=== PATIENT | female | born 1960 | race Hispanic/Latino ===

== ENCOUNTER 2016-11-17 18:32 | Emergency (ER) | payer OTHER ==
[~2016-11-17] VITALS: Ht 152.4 cm; Wt 54.0 kg
[2016-11-17 20:09] LABS: ABSOLUTE BASOPHIL COUNT 0 /CUMM (0.0-0.2); ABSOLUTE EOSINOPHIL COUNT 0.2 /CUMM (0.0-0.7); ABSOLUTE LYMPH COUNT 2.8 /CUMM (1.2-3.4); ABSOLUTE MONOCYTE COUNT 0.6 /CUMM (0.10-0.60); BASOPHIL % 0.4 % (0.0-2.0); EOSINOPHIL % 3.2 % (0-5); GRANULOCYTE % 45.6 % (42.2-75.2); HEMATOCRIT 37.1 % (37-47); MEAN CORPUSCULAR HGB 28.2 PG (27.0-31.0); MEAN CORPUSCULAR HGB CONC 33.2 G/DL (33.0-37.0); MEAN CORPUSCULAR VOLUME 84.9 FL (81.0-99.0); MEAN PLATELET VOLUME 9.6 FL (7.4-10.4); PLATELET COUNT 224 /CUMM (130-400); RBC DISTRIBUTION WIDTH 15.3 % (11.5-14.5); RED BLOOD CELL CT 4.37 /CUMM (4.20-5.40); WHITE BLOOD CELL COUNT 6.6 /CUMM (4.8-10.8)
--- NOTE | 2016-11-17 21:01 | RADIOLOGY REPORT ---
EXAMINATION: XR CHEST CLINICAL INFORMATION: Chest COMPARISON: 08/03/2016 chest x-ray TECHNIQUE: 2 views of the chest were obtained. FINDINGS: Normal cardiomediastinal silhouette and pulmonary vascularity. The lungs are clear. No pleural effusions or pneumothorax. The costophrenic angles are sharp. The visualized bony thorax is within normal limits. IMPRESSION: No acute cardiopulmonary findings.
--- NOTE | 2016-11-17 22:08 | CT SCAN REPORT ---
EXAMINATION: CT ABDOMEN AND PELVIS WITH CONTRAST CLINICAL INFORMATION: Epigastric pain COMPARISON: 05/23/2012 TECHNIQUE: Multidetector volumetric imaging was performed of the abdomen and pelvis before and after the IV administration of 94 mL of Optiray 320 intravenous contrast. Sagittal and coronal reformatted images were obtained on the technologist's workstation. DLP: 275.95 mGy-cm FINDINGS: LUNG BASES: The visualized lung bases demonstrate mild dependent atelectatic changes. LIVER, GALLBLADDER, AND BILIARY TREE: The liver is normal in size, shape, and attenuation. No focal hepatic lesion or biliary ductal dilatation is present. The gallbladder is partially distended with no evidence of radiopaque gallstones, gallbladder wall thickening, or obvious pericholecystic inflammatory changes. PANCREAS: Unremarkable. SPLEEN: Unremarkable. ADRENAL GLANDS: Unremarkable. 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 The kidneys are normal in size, shape, and attenuation. No hydronephrosis, hydroureter, or calculi seen. No perinephric stranding. BLADDER: The urinary bladder is empty. GASTROINTESTINAL TRACT: The stomach, duodenum and small bowel are unremarkable. Diverticular disease of the left colon noted without evidence of acute diverticulitis. The appendix is unremarkable. ABDOMINAL WALL: No significant hernia is appreciated. LYMPH NODES: Normal. VASCULAR: Unremarkable. PELVIC VISCERA: The uterus and adnexa are unremarkable. OSSEOUS STRUCTURES: Unremarkable. IMPRESSION: No acute intra-abdominal findings. No CT evidence of acute cholecystitis, appendicitis, urinary stone or hydronephrosis. Colon diverticulosis without evidence of acute diverticulitis.
--- NOTE | 2016-11-17 22:12 | ED GI/GU/ABDOMINAL COMPLAINT ---
History of Present Illness General Chief Complaint: Abdominal Pain/Flank Pain Stated Complaint: ABD PAIN X 4 DAYS Source: patient, family Exam Limitations: language barrier Allergies Coded Allergies: NO KNOWN ALLERGIES (05/22/12) Reconcile Medications Omeprazole 20 MG CAPSULE.DR Butts CAP PO DAILY gastritis Triage Note: PT STATES EPIGASTRIC PAIN FOR THE PAST 4 DAYS. DENIES N/V/D Triage Nurses Notes Reviewed? yes ? N Is pt currently ? No HPI: This patient is a 56-year-old female who presented to the emergency department today, he by her for evaluation of epigastric pain 4 days. The patient reported that the pain got worse today. She has an appointment scheduled with her primary care physician for Friday or this week, but felt that the pain was worse that she needed to come to the emergency department this evening. The patient has not been taking any medication for her symptoms. She denied any nausea, vomiting, or diarrhea. She denied any fevers, chills, or difficulty breathing. She reported that the pain sometimes radiates up to her chest, but not currently. The patient denied any arm pain, jaw pain, numbness or tingling in her extremities, visual changes, headaches, or any other associated symptoms. She was unable to qualify or quantify the pain on a pain scale. (SIDDHARTH RAMOS,LULY) Vital Signs & Intake/Output Vital Signs & Intake/Output Vital Signs Date Time Temp Pulse Resp B/P B/P Pulse O2 O2 Flow FiO2 Mean Ox Delivery Rate 11/17 2225 98.0 53 16 108/56 97 Room Air 11/17 2137 97.3 56 18 116/56 98 Room Air 11/17 2006 Room Air 11/17 1838 96.8 76 16 131/56 70 ED Intake and Output 11/18 0000 11/17 1200 Intake Total 1000 Output Total Balance 1000 Intake, IV 1000 Patient 119 lb Weight Weight Reported by Patient Measurement Method Past History Travel History Traveled to [place] past 21 day No Medical History Any Pertinent Medical History? see below for history Gastrointestinal: h. PYLORI Surgical History Surgical History: non-contributory Psychosocial History What is your primary language [place] Tobacco Use: Never used ETOH Use: denies use Illicit Drug Use: denies illicit drug use Family History Hx Contributory? No (LULY MESSINA PA-C) Review of Systems Review of Systems Constitutional: Reports: no symptoms. EENTM: Reports: no symptoms. Respiratory: Reports: no symptoms. Cardiovascular: Reports: no symptoms. GI: Reports: see HPI. Genitourinary: Reports: no symptoms. Musculoskeletal: Reports: no symptoms. Skin: Reports: no symptoms. Neurological/Psychological: Reports: no symptoms. All Other Systems: Reviewed and Negative (LULY MESSINA PA-C) Physical Exam Physical Exam Gastrointestinal: normal bowel sounds, soft, no organomegaly, TENDERNESS TO PALPATION IN THE EPIGASTRIUM. nO REBOUND OR GUARDING. nO mCbURNEY'S POINT TENDERNESS. nEGATIVE Alberto SIGN. nEGATIVE rOVSING SIGN. nEGATIVE PSOAS SIGN. nO MASSES OR HERNIAS APPRECIATED Comments: Well-developed well-nourished person in no mild distress HEENT: Normal EENT exam, head normocephalic, moist mucous membranes Pupils equally round and reactive to light. Neck: Supple, no lymphadenopathy Back: Normal gait Cardiovascular: Regular rate and rhythm with no murmurs, rubs, or gallops Respiratory: Chest nontender. No respiratory distress. Breath sounds clear to auscultation bilaterally with no wheezes, rales, rhonchi Extremity: Normal equal pulses Neuro: Alert oriented x3, motor sensory normal, cranial nerves II through XII grossly intact. Skin: No appreciable rash on exposed skin, skin is warm and dry. Psych: Mood and affect is normal, memory and judgment is normal. Core Measures ACS in differential dx? Yes Severe Sepsis Present: No Septic Shock Present: No (LULY MESSINA PA-C) Progress Differential Diagnosis: AAA, AMI, appendicitis, biliary colic, bowel obstruction , colon cancer, cholecystitis, diverticulitis, gastritis, hepatitis, ischemic bowel, inflamm bowel dis, kidney stone, pancreatitis, PUD/GERD, perforated viscous, UTI/pyelo Plan of Care: Orders Procedure Date/time Status URINALYSIS 11/18 1911 Complete TROPONIN LEVEL 11/18 1911 Complete LIPASE 11/18 1911 Complete HEPATIC FUNCTION PANEL 11/18 1911 Complete CBC WITHOUT DIFFERENTIAL 11/18 1911 Complete BASIC METABOLIC PANEL 11/18 1911 Complete AMYLASE 11/18 1911 Complete EKG 11/18 1911 Active Laboratory Tests 11/17/161956: Anion Gap 11, Estimated GFR 57 L, BUN/Creatinine Ratio 22.0, Glucose 89, Calcium 9.2, Total Bilirubin 0.3, Direct Bilirubin 0.1, AST 18, ALT 35, Alkaline Phosphatase 70, Troponin I < 0.01, Total Protein 6.8, Albumin 3.9, Amylase 74, Lipase 166, CBC w Diff NO MAN DIFF REQ, RBC 4.37, MCV 84.9, MCH 28.2, RDW 15.3 H, MPV 9.6, Gran % 45.6, Lymphocytes % 42.0, Monocytes % 8.8, Eosinophils % 3.2, Basophils % 0.4, Absolute Granulocytes 3.0, Absolute Lymphocytes 2.8, Absolute Monocytes 0.6, Absolute Eosinophils 0.2, Absolute Basophils 0, PUBS MCHC 33.2 11/17/16 1935: Urine Color STRAW, Urine Clarity CLEAR, Urine pH 6.5, Ur Specific [place] <= 1.005, Urine Protein NEG, Urine Ketones NEG, Urine Nitrite NEG, Urine Bilirubin NEG, Urine Urobilinogen 0.2, Ur Leukocyte Esterase NEG, Ur Microscopic EXAM NOT REQUIRED, Urine Hemoglobin NEG, Urine Glucose NEG Diagnostic Imaging: Viewed by Me: CT Scan. Discussed w/RAD: CT Scan. Radiology Impression: PATIENT: ILSA BLAND PRESENT AGE: 56 PATIENT ACCOUNT NO: [id number] : 56 LOCATION: [facility] ORDERING PHYSICIAN: LULY MESSINA PA-C SERVICE DATE: 11/17/16 EXAM TYPE: CAT - CT ABD & PELVIS W IV CONTRAST EXAMINATION: CT ABDOMEN AND PELVIS WITH CONTRAST CLINICAL INFORMATION: Epigastric pain COMPARISON: 05/23/2012 TECHNIQUE: Multidetector volumetric imaging was performed of the abdomen and pelvis before and after the IV administration of 94 mL of Optiray 320 intravenous contrast. Sagittal and coronal reformatted images were obtained on the technologist's workstation. DLP: 275.95 mGy-cm FINDINGS: LUNG BASES: The visualized lung bases demonstrate mild dependent atelectatic changes. LIVER, GALLBLADDER, AND BILIARY TREE: The liver is normal in size, shape, and attenuation. No focal hepatic lesion or biliary ductal dilatation is present. The gallbladder is partially distended with no evidence of radiopaque gallstones, gallbladder wall thickening , or obvious pericholecystic inflammatory changes. PANCREAS: Unremarkable. SPLEEN: Unremarkable. ADRENAL GLANDS: Unremarkable. 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 The kidneys are normal in size, shape, and attenuation. No hydronephrosis, hydroureter, or calculi seen. No perinephric stranding. BLADDER: The urinary bladder is empty. GASTROINTESTINAL TRACT: The stomach, duodenum and small bowel are unremarkable. Diverticular disease of the left colon noted without evidence of acute diverticulitis. The appendix is unremarkable. ABDOMINAL WALL: No significant hernia is appreciated. LYMPH NODES: Normal. VASCULAR: Unremarkable. PELVIC VISCERA: The uterus and adnexa are unremarkable. OSSEOUS STRUCTURES: Unremarkable. IMPRESSION: No acute intra-abdominal findings. No CT evidence of acute cholecystitis, appendicitis, urinary stone or hydronephrosis. Colon diverticulosis without evidence of acute diverticulitis. DICTATED BY: ALEXIA CASTAÑEDA MD DATE/TIME DICTATED:11/17/162149 [facility] SPECIALIST:HILARIO DATE/TIME TRANSCRIBED:11/17/162149 CONFIDENTIAL, DO NOT COPY WITHOUT APPROPRIATE AUTHORIZATION. <Electronically signed in Other Vendor System> SIGNED BY: ALEXIA CASTAÑEDA MD 11/17/16 6172 Initial ED EKG: normal axis, normal intervals, no ST T wave changes, SINUS BRADYCARDIA, 57 BPM Comments: 11/17/2016 10:20:09 PM: As at the patient's bedside for reevaluation. She reported that the pain is slightly better, but is seeming to come back. The patient has been reported that she does have a history of H. pylori which she underwent treatment for. She is not currently on any medication. Unremarkable CT scan of the abdomen and pelvis. Unremarkable laboratory studies. This patient will be given a GI specialist for follow-up. She is also scheduled for an appointment with her primary care physician this Friday or for a H. pylori breath test. (SIDDHARTH RAMOS,LULY) Departure Departure Disposition: HOME OR SELF CARE Condition: Stable Clinical Impression Primary Impression: Gastritis Qualifiers: Gastritis type: unspecified gastritis Chronicity: unspecified Gastritis bleeding: presence of bleeding unspecified Qualified Code: K29.70 - Gastritis, unspecified, without bleeding Referrals: SILVIA GRIGGS,ANN (PCP/Family) MARCELO ALFARO MD Additional Instructions: Please follow-up with the tool and gauge inspector whose information has been provided to you in this packet. Please also attend your previously scheduled appointment with your primary care physician this week. Take medication as prescribed. Return for any worsening symptoms or concerns. Departure Forms: Customer Survey General Discharge Information Prescriptions: Current Visit Scripts Omeprazole 1 CAP PO DAILY #7 CAP (LULY MESSINA PA-C) PA/DEEP SEA DIVER Co-Sign Statement Statement: ED Attending supervision documentation- [] I saw and evaluated the patient. I have also reviewed all the pertinent lab results and diagnostic results. I agree with the findings and the plan of care as documented in the PA's/DEEP SEA DIVER's documentation. [x] I have reviewed the ED Record and agree with the PA's/DEEP SEA DIVER's documentation. [] Additions or exceptions (if any) to the PAs/DEEP SEA DIVER's note and plan are summarized below: [] (MAYELA GRIGGS,JANA Matias)
[2016-11-17] MEDS ORDERED: OMEPRAZOLE20 M2 PO (22:21)
[2016-11-17 22:25] VITALS: BP 108/56
== END 2016-11-17 22:37 ==
LOC: ERH 18:32
PROVIDERS: Pediatrics
DX: K29.70 Gastritis, unspecified, without bleeding (principal)
CPT/HCPCS: 74177; 81003; 93005; 93010; 96361; 96374